=== PATIENT | female | born 1985 | race Caucasian/White ===

== ENCOUNTER 2020-10-18 00:42 | Observation (INO) | payer BC, SELFPAY ==
[2020-10-18 01:00] VITALS: BMI 30.2
--- NOTE | 2020-10-18 01:00 | OBADM ---
This patient, Vicki Miller, admitted to the OB room Labor/Delivery/Recovery 102 for observation. Patient/family oriented to hospital policies and general routines including ID bracelet, bed and alarms, visiting hours, pain management, procedures, bathroom and other care routines, personal items, smoking policy, room service/diet, and visiting hours. Patient/Family are encouraged to report perceived risks to care and to ask questions if they do not understand what they are told or what they should do.
--- NOTE | 2020-11-08 11:08 | PM.OBTRLD ---
OB - Triage/Final Diagnosis Visit Information Comments/Additional reasons for admission: I have assessed the risk for this patient, Vicki Miller, and determined that she would benefit from observation care. Final Diagnosis (1) False labor: Code(s): O47.9 - False labor, unspecified Status: Acute
== END 2020-10-18 03:35 | disposition home or self-care (01) ==
PROVIDERS: Admitting Provider Obstetrics & Gynecology; PCP Internal Medicine; Visit Provider Obstetrics & Gynecology
DX: O47.1 False labor at or after 37 completed weeks of gestation (principal); Z3A.38 38 weeks gestation of pregnancy
CPT/HCPCS: G0378; G0379

== ENCOUNTER 2020-10-26 07:15 | Inpatient (IN) | payer BC, SELFPAY ==
[2020-10-26] VITALS (35 sets, daily range): BP systolic 90–122; BP diastolic 49–82; PULSE 56–99; RESP 15–16; TEMP 36.1–37.4; O2SAT 98–100; BMI 29.7
--- OUTSIDE RECORDS SUMMARY | 2020-10-26 07:20 | XMS_ITS ---
:1985 Author Care Team Providers Name Role Phone CONSTANTINO RUIZ DO Primary Care Provider [phone] Allergies Code Code System Name Reaction Severity Status Onset NKDA ? Medications Name Status Start Date Stop Date ? ? Afluria Qd (36 mos up)(PF)60 Completed ? 03/18/2020 mcg (15 mcg x4)/0.5 mL IM syringe azelaic acid 15 % topical gel Completed ? iron Active ? Not available + DHA Active ? Not available silver sulfadiazine 1 % topical cream Active ? Not available triamcinolone acetonide 0.1 % topical Completed ? 03/18/2020 ointment Problems Name Status Onset Date Source ? Active 04/17/2020 ? Uterine Size for Dates Discrepancy Active 08/21/2020 ? Large for Gestation Age Fetus Active ? ? History of Section Active ? ? Procedures Date Name Performed by ? 12/13/2017 Delivery Information not avai lable 05/15/2003 Breast Biopsy Information not avai labольга Notes: Left breast 05/15/1988 Tonsillectomy Information not avai lable 04/17/2020 US, Obstetric, Nuchal Translucency Cecilio herrera [address] [place] [address] ([address]) 06/08/2020 US, Obstetric, 2Nd or 3Rd Trimester Leydi segura [address]
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
--- OUTSIDE RECORDS SUMMARY | 2020-10-26 07:20 | XMS_ITS | Encounter Summary ---
:1985 Author Care Team Providers Name Role Phone Fuentes Juan DO Primary Care Provider [phone] Reason for Visit None recorded. Assessment and Plan 1. Reduced movement ? non-stress test Discussion Note: None recorded.Patient educational handouts: No information available. Plan of Care Reminders Provider Appointments Ob Routine Rakel Delores 11/05/2020 MD Vlad 9:15AM Lab None ? ? recorded. Referral None ? ? recorded. Procedures None ? ? recorded. Surgeries None ? ? recorded. Imaging Non-stress [place] Test 10/21/2020 Medications Name Start Date ? ? iron [...]
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
--- OUTSIDE RECORDS SUMMARY | 2020-10-26 07:20 | XMS_ITS ---
:1985 Author Care Team Providers Name Role Phone CONSTANTINO RUIZ DO Primary Care Provider [phone] Allergies Code Code System Name Reaction Severity Status Onset NKDA ? Medications Name Status Start Date Stop Date ? ? baclofen 10 mg tablet Completed ? 11/01/2016 TK 1 T PO TID PRN Boostrix Tdap 2.5 Lf unit-8 mcg-5 Lf/0.5 mL intramuscular syring e Active ? Not available ADM 0.5ML IM UTD cephalexin 500 mg capsule Active ? Not av ailable Fluvirin [id number] (PF) 45 mcg(15 mcg x3)/0.5 mL intramuscular s yringe Active ? Not available ADM 0.5ML IM UTD Fluzone Quad (PF) 60 mcg(15 mcgx4)/0.5 mL intramuscular s yringe Active ? Not available ADM 0.5ML IM UTD hydrocortisone butyrate 0.1 % topical Completed ? 11/01/2016 cream hyoscyamine 0.125 mg sublingual tablet Unknown ? Not available Levora-28 0.15 mg-0.03 mg tablet Completed ? 11/01/2016 TK 1 T PO QD Lotemax 0.5 % eye drops,suspension Unknown ? Not available INT 1 GTT INTO AFFECTED EYE QID meloxicam 15 mg tablet Completed ? 7 TK 1 T PO QD metronidazole 500 mg tablet Completed ? 04/14 Norlyda 0.35 mg tablet Active ? Not avail able nortriptyline 25 mg capsule Completed ? 10/14 TK ONE C PO QHS ofloxacin 0.3 % eye drops Unknown ? Not av ailable ondansetron 4 mg disintegrating tablet Unknown ? Not available prednisone 20 mg tablet Active
--- OUTSIDE RECORDS SUMMARY | 2020-10-26 07:20 | XMS_ITS | Encounter Summary ---
:1985 Author Care Team Providers Name Role Phone Fuentes Juan Primary Care Provider [phone] Reason for Visit OB visit Assessment and Plan 1. Large for gestation age fetus Discussion Note: None recorded.Patient educational handouts: No [...] BMI Blood Pressure 5 ft 4 in 163 lbs 28 kg/m2 110/72 mm[Hg] Results Lab Results None recorded. Allergies Code Code System Name Reaction Severity Onset NKDA ? ? ? Problems Name Status Onset Date Source ?
--- OUTSIDE RECORDS SUMMARY | 2020-10-26 07:20 | XMS_ITS | Encounter Summary ---
:1985 Author Care Team Providers Name Role Phone Fuentes Juan Primary Care Provider [phone] Reason for Visit OB visit Assessment and Plan 1. Large for gestation age fetus 2. History of section 3. section following pr evious section ? section (SURG) Discussion Note: None recorded.Patient educational handouts: No information available. Plan of Care Reminders Provider Appointments Ob Routine Rakel Delores 11/05/2020 MD Vlad 9:15AM Lab None ? ? recorded. Referral None ? ? recorded. Procedures None ? ? recorded. Surgeries [facility] (SURG) 10/02/2020 Vlad Imaging None ? ? recorded. Medications Name Start Date ? ? iron ? + DHA ? silver sulfadiazine 1 % topical cream ? APPLY A 1/16 INCH (1.5 MM) THICK LAYER TO ENTIRE BURN AREA BY TOPICALROUTE 2 TIMES PER DAY Medications Administered None recorded. Vitals Height Weight BMI Blood Pressure 5 ft 4 in 158 lbs 27.1 kg/m2 112/68 mm[Hg] Results Lab Results None recorded. Allergies Code Code System Name
--- OUTSIDE RECORDS SUMMARY | 2020-10-26 07:20 | XMS_ITS | Encounter Summary ---
:1985 Author Care Team Providers Name Role Phone Fuentes Juan Primary Care Provider [phone] Reason for Visit OB visit OB [id number] EDC 10/31/2020 LMP 01/24/2021 Assessment and Plan Assessment Note Patient is _37__weeks . Dis cussed plan. 1. Routine care Discussion Note: None recorded.Patient educational handouts: No [...] BMI Blood Pressure 5 ft 4 in 160 lbs 27.5 kg/m2 102/61 mm[Hg] Results Lab Results None recorded. Allergies Code Code System Name Reaction Severity Onset
--- OUTSIDE RECORDS SUMMARY | 2020-10-26 07:20 | XMS_ITS | Encounter Summary ---
:1985 Author Care Team Providers Name Role Phone Fuentes Bruce Ajaygenesis Primary Care Provider [phone] Reason for Visit OB visit OB [id number] EDC 10/31/2020 LMP 01/25/2020 Assessment and Plan Assessment Note Patient is __36_weeks . Dis cussed plan. 1. Routine care [...] DAY Medications Administered None recorded. Vitals Height BMI 5 ft 4 in 28 kg/m2 Results Lab Results None recorded. Allergies Code Code System Name Reaction Severity Onset NKDA ?
--- OUTSIDE RECORDS SUMMARY | 2020-10-26 07:20 | XMS_ITS | Encounter Summary ---
:1985 Author Care Team Providers Name Role Phone Fuentes Juan DO Primary Care Provider [phone] Reason for Visit OB visit 33w5d Assessment and Plan 1. Routine care Discussion Note: None recorded.Patient [...] BMI Blood Pressure 5 ft 4 in 155 lbs 26.6 kg/m2 107/66 mm[Hg] Results Lab Results None recorded. Allergies Code Code System Name Reaction Severity Onset NKDA ? ? ? Problems Name Status Onset Date Source ?
--- OUTSIDE RECORDS SUMMARY | 2020-10-26 07:20 | XMS_ITS | Encounter Summary ---
:1985 Author Care Team Providers Name Role Phone Fuentes Juan DO Primary Care Provider [phone] Reason for Visit OB visit Assessment and Plan 1. History of section 2. Routine care 3. Uterine size for dates discre pancy Discussion Note: None recorded.Patient educational handouts: No [...] BMI Blood Pressure 5 ft 4 in 150 lbs 25.7 kg/m2 102/62 mm[Hg] Results Lab Results None recorded. Allergies Code Code System Name Reaction Severity Onset NKDA ? ? ? Pro
--- OUTSIDE RECORDS SUMMARY | 2020-10-26 07:20 | XMS_ITS | Encounter Summary ---
:1985 Author Care Team Providers Name Role Phone Fuentes Juan DO Primary Care Provider [phone] Reason for Visit OB visit 31w5d Assessment and Plan 1. Routine care Discussion [...] BMI Blood Pressure 5 ft 4 in 154 lbs 26.4 kg/m2 108/57 mm[Hg] Results Lab Results None recorded. Allergies Code Code System Name Reaction Severity Onset NKDA ? ? ? Problems Name Status Onset Date Source ?
--- OUTSIDE RECORDS SUMMARY | 2020-10-26 07:20 | XMS_ITS | Encounter Summary ---
:1985 Author Care Team Providers Name Role Phone Fuentes Juan DO Primary Care Provider [phone] Reason for Visit OB visit 27w4d Assessment and Plan 1. Routine care Discussion [...] BMI Blood Pressure 5 ft 4 in 148 lbs 25.4 kg/m2 111/69 mm[Hg] Results Lab Results None recorded. Allergies Code Code System Name Reaction Severity Onset NKDA ? ? ? Problems Name Status Onset Date Source ?
--- NOTE | 2020-10-26 07:44 | LDADM ---
This patient, Vicki Miller, was admitted to Labor/Delivery/Recovery 120 on 10/26/20 at 07:15. Plans for labor, pain management and were discussed with patient. Patient/family oriented to hospital policies and general routines including ID bracelet, bed and alarms, visiting hours, pain management, procedures, bathroom and other care routines, personal items, smoking policy, room service/diet and guest tray routines, security routines, and visiting hours. Patient/Family are encouraged to report perceived risks to care and to ask questions if they do not understand what they are told or what they should do. See OBIX for further documentation.
--- NOTE | 2020-10-26 07:48 | P.PNAN_ITS ---
Anes - Initial Pre Proc Eval Procedure: Operation Date: 10/26/20 12:00 Proposed Procedures p Repeat Section - Rakel Chu MD Date/Time: 10/26/20 07:48 Surgeon: Rakel Chu MD Pre Op Diagnosis: C Section Patient Data Age: 35 Gender: F Height: 1.57 m Weight: 73.64 kg Last Vital Signs Pulse 90 10/26/20 07:30 BP 102/68 10/26/20 07:30 Allergies Allergy/AdvReac Type Severity Reaction Status Date / Time No Known Allergies Allergy Verified 08/19/20 10:00 Home Medications Medication Instructions Recorded Confirmed Type PNV cmb#95-ferrous fumarate-FA 1 tablet PO DAILY 10/01/20 10/01/20 History [] Patient hx anesthesia problems: none Family hx anesthesia problems: none [facility] Social History Social History Smoking status: Former smoker Second hand tobacco smoke exposure: No Smoking end date: 05/15/13 Alcohol intake: current Substance use: never Gender identity (if verbalized by the patient): Female Spiritual care concerns: No Anes - Eval Final PreProcedure Day of Procedure 10/26/20 07:48 Patient weight: overweight Heart: regular rate and rhythm Lungs: clear to auscultation and normal air movement Airway: Mallampati scale class II Neurological: alert and oriented Last oral intake: >/= 8 hours ASA classification: II Emergent: no Anesthetic plan: proceed Anesthesia type and monitoring: regional spinal and standard monitoring Informed Consent: The patient's anesthetic plan and its attendant risks and benefits were discussed with the patient/family/POA. Questions were solicited and answers provided to the satisfaction of the patient/family/POA.
[2020-10-26] MEDS: LACTATED RINGERS 1,000 ML 125 ML IV CONT (07:55)
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
[2020-10-26 08:09] LABS: Basophils Percent Auto 0.2 % (0.2-1.2); Eosinophils Absolute Auto 0.1 K/mm3 (0-0.3); Eosinophils Percent Auto 0.8 % (0-4.4); Hematocrit 40.5 % (37.0-47.0); Hemoglobin 12.3 g/dL (12.0-15.0); Immature Granulocyte Absolute 0.08 K/mm3 (0.00-0.031); Immature Granulocyte Percent A 0.7 % (0-0.5); Lymphocytes Absolute Auto 2.06 K/mm3 (0.9-3.2); Lymphocytes Percent Auto 17.9 % (18.3-44.2); Mean Corpuscular HGB Conc 30.4 g/dl (32-36); Mean Corpuscular Hemoglobin 24.6 pg (26-34); Mean Corpuscular Volume 81.2 fl (80-100); Mean Platelet Volume 11.2 fl (7.4-10.4); Monocytes Absolute Auto 0.8 K/mm3 (0.1-0.6); Monocytes Percent Auto 6.9 % (2.6-8.5); Neutrophils Absolute Auto 8.4 K/mm3 (1.3-6.7); Neutrophils Percent Auto 73.5 % (45.5-73.1); Platelet Count Result 187 k/mm3 (150-375); Red Blood Count 4.99 M/mm3 (4.2-5.4); Red Cell Distribution Width 18.2 % (11.5-14.5); White Blood Count 11.5 K/mm3 (4.5-10.0)
--- NOTE | 2020-10-26 08:15 | WPDHPUPDATE1 ---
History and Physical Update Update Date/Time: 10/26/20 08:15 History and Physical has been reviewed, including an updated exam of the patient. There are NO changes in the patient's condition. Risks, benefits, and alternatives have been discussed and questions answered. Patient agrees to proceed with procedure.
[2020-10-26] MEDS: KETOROLAC 30 MG/ML VIAL (*BKC) IV PUSH ×2 (09:10→20:16)
[2020-10-26 09:17] LABS: Rapid Plasma Reagin Non-Reactive (NonReactive)
--- NOTE | 2020-10-26 09:23 | W.PM.PROC2 ---
Procedure Note - Detailed Date of Procedure 10/26/20 Pre-op Diagnosis term IUP, prior section Post-op Diagnosis same Procedure Performed repeat section Surgeon Rakel Chu MD Lead Network Engineer see delivery record Anesthesia spinal Indications prior CS Description of Procedure The patient was taken to the operating room and placed in supine position with left lateral tilt. She received spinal anesthesia and was prepped and draped in normal fashion. Martinez was in place. After testing for adequate regional anesthesia, a Pfannensteil incision was made through skin and subcutaneous tissue. The fascia was incised in the midline and this was extended laterally with perkins scissors. the rectus muscles were from the fascia both superiorly and inferiorly. The peritoneum was entered bluntly and this opening was extended bluntly and with metzenbaum scissors. A bladder blade was placed. A bladder flap was made and the bladder blade replaced. The low transverse uterine incision was made with a scalpel and extended bluntly. The amniotic sac was ruptured and clear fluid was noted. The head was elevated to the incision. The head delivered easily. The remainder of the was delivered easily. After delayed cord clamping, the cord was cut and the baby handed to the nurse. The uterus was exteriorized and the placenta was extracted manually. The uterus was wiped clean to ensure no remaining membranes. The uterus was closed with one running, nonlocking suture of 3-0 vicryl. Hemostasis was noted. the uterus was returned to the pelvis and the abdomen was irrigated. The fascia was closed with running suture of 0-vicryl. The subcutaneous tissue was irrigated and made hemostatic with bovie cautery. The skin was closed with 4-0 vicryl in running subcuticular fashion and steri strips were placed. The patient tolerated the procedure well and mother and baby were both in stable condition. Drains No Packing No Pathology yes Complications No immediate complications Condition stable Disposition floor
--- NOTE | 2020-10-26 09:47 | PC.NURSE ---
0735-Pt came in stating she is a scheduled c/s today at noon but started sherwin aound 0500. SVE is 6-7cm. called,informed of SVE. She stated she is entering the building now and can go back for c/s as soon anesthesia is ready. Laura BHAT called, she stated she is ready and go as soon as labs are back on pt.
[2020-10-26] MEDS: ONDANSETRON INJ 4 MG/2 ML VIAL IV PUSH (10:55)
[2020-10-26] MEDS: OXYTOCIN 30 UNITS/NS 500 ML 30 UNITS/500 ML BAG 125 UNITS IV CONT (11:36)
--- NOTE | 2020-10-26 12:32 | OBPPTRN ---
1139 Patient transferred to post room #286 via stretcher. Support person present. Oriented to unit, room, information board, rooming in, admission packet and security measures. Patient verbalizes understanding.
[2020-10-26] MEDS: diphenhydrAMINE HCl INJ 50 MG/ML VIAL 25 MG IV PUSH (12:38)
--- NOTE | 2020-10-26 12:50 | PC.NURSE ---
Mother called out for assist with feeding. Mother states eagerly fed for first feeding, mother has slight tenderness with this attempt. Reviewed feeding cues, frequencies, duration of feedings, feeding elimination flow sheet, and signs of adequate intake. Demonstrated stimulation techniques to wake infant for feeding. Assisted with infant to breast. Mother is attempting in cradle positioning, infant is drawing in nipple only. Reviewed positioning/alignment in cross cradle, holding breast in ?U? hold and guided asymmetrical latch on. able to latch correctly. nursed eagerly, with steady draws and frequent swallowing noted. Reviewed signs of a correct latch, effective nursing and suck swallow ratio. Infant would slip to shallow latch, mother reports tenderness. Demonstrated how to adjust latch more deeply while feeding. Mother reports she can feel change in latch and has no tenderness. Suggested mother stimulate while feeding to increase stimulate, increase intake and to assist with maintaining deep latch. Nipple care reviewed of lanolin after feedings, warm compresses as needed. Suggested mother hold breast during entire feeding to help maintain deep latch. Instructed mother to call out for RN assistance if she is unable to latch infant for feeding or she has discomfort with nursing. Instructed feeding should be initiated three hours from start of last feeding or if feeding cues are noted before. Mother voiced understanding of information shared.
[2020-10-26] MEDS: DEXTROSE 5%/0.45% SOD CHL 1,000 ML 125 ML IV CONT (17:15)
[2020-10-27 06:06] LABS: Basophils Percent Auto 0.2 % (0.2-1.2); Eosinophils Percent Auto 0.3 % (0-4.4); Hematocrit 32.8 % (37.0-47.0); Hemoglobin 9.8 g/dL (12.0-15.0); Immature Granulocyte Absolute 0.08 K/mm3 (0.00-0.031); Immature Granulocyte Percent A 0.6 % (0-0.5); Lymphocytes Absolute Auto 1.34 K/mm3 (0.9-3.2); Lymphocytes Percent Auto 10.5 % (18.3-44.2); Mean Corpuscular HGB Conc 29.9 g/dl (32-36); Mean Corpuscular Hemoglobin 24.7 pg (26-34); Mean Corpuscular Volume 82.8 fl (80-100); Monocytes Absolute Auto 0.8 K/mm3 (0.1-0.6); Monocytes Percent Auto 6.1 % (2.6-8.5); Neutrophils Absolute Auto 10.5 K/mm3 (1.3-6.7); Neutrophils Percent Auto 82.3 % (45.5-73.1); Platelet Count Result 146 k/mm3 (150-375); Red Blood Count 3.96 M/mm3 (4.2-5.4); Red Cell Distribution Width 17.8 % (11.5-14.5); White Blood Count 12.8 K/mm3 (4.5-10.0)
[2020-10-27] MEDS: MULTIVIT/MIN/PREN/FOL AC/IRON TABLET 1 TAB PO (06:44)
[2020-10-27] MEDS: DOCUSATE SODIUM 100 MG CAPSULE PO ×2 (06:44→17:48)
[2020-10-27] MEDS: IBUPROFEN 600 MG TABLET PO ×3 (06:45→20:49)
[2020-10-27] MEDS: SIMETHICONE 80 MG TAB.CHEW PO ×3 (06:45→17:48)
[2020-10-27] MEDS: POLYSACCHARIDE IRON COMPLEX 150 MG CAPSULE PO ×2 (06:57→17:48)
--- NOTE | 2020-10-27 07:25 | WPDANLDPN2 ---
Anes-Prog Note L&D Date/Time: 10/27/20 07:26 Comfortable throughout: section Neuraxial method: spinal Epidural/Spinal procedure site: clean & non-tender Neuro status: Neuro function grossly intact. Cardiovascular status: normal Respiratory status: normal Airway patency: baseline Mental status: baseline Post-Op hydration status: normal Vital Signs: Last Vital Signs Temp 36.9 C 10/26/20 22:15 Pulse 72 10/26/20 22:15 Resp 16 10/26/20 22:15 BP 90/51 L 10/26/20 22:15 Pulse Ox 100 10/26/20 22:15 Pain score (VAS): 05/24 I/O: Intake & Output 10/26/20 10/26/20 10/27/20 15:59 23:59 07:59 Intake Total 1100 2520 Output Total 375 3505 1325 Balance 725 695 -1329 Post-procedural complaints: nausea moderate, treatment effective and vomiting Patient feedback: Patient satisfied with anesthetic care.
--- NOTE | 2020-10-27 07:26 | WPDANLDNPN2 ---
Anes-Prog Note L&D-Neuraxial Date/Time: 10/27/20 07:26 Neuraxial medications: intrathecal PF morphine Opiod-related complaints: none Patient feedback: Patient satisfied with post-operative pain management.
[2020-10-27 07:35] VITALS: BP 104/68; PULSE 61; RESP 16; TEMP 37.2; O2SAT 97
--- NOTE | 2020-10-27 07:53 | P.PNOB_ITS ---
OB - PN: Subj Subjective Date/time seen: 10/27/20 07:53 Patient comments: no complaints baby status: NICU Agenda feeding status: pumping and storing Narrative: POD 1 from primary CS. Doing well. Normal lochia. Eating, ambulating, singh out. Has not voided yet. OB - PN: Obj Data Labs CBC & Chem 7: 10/27/20 05:54 Labs: Laboratory Results - last 24 hr 10/26/20 10/26/20 10/26/20 07:49 07:49 07:49 WBC 11.5 H RBC 4.99 Hgb 12.3 Hct 40.5 MCV 81.2 MCH 24.6 L MCHC 30.4 L RDW 18.2 H Plt Count 187 MPV 11.2 H Immature Gran % (Auto) 0.7 H Neut % (Auto) 73.5 H Lymph % (Auto) 17.9 L [place] % (Auto) 6.9 Eos % (Auto) 0.8 Baso % (Auto) 0.2 Lymph # (Auto) 2.06 [place] # (Auto) 0.8 H Eos # (Auto) 0.1 Baso # (Auto) 0.0 Abs Immat Gran (auto) 0.08 H Absolute Neuts (auto) 8.4 H Absolute Nucleated RBC 0.0 Nucleated RBC % 0.0 RPR Non-reactive Blood Type A Positive Antibody Screen Negative 10/27/20 05:54 WBC 12.8 H RBC 3.96 L Hgb 9.8 L Hct 32.8 L MCV 82.8 MCH 24.7 L MCHC 29.9 L RDW 17.8 H Plt Count 146 L MPV 11.0 H Immature Gran % (Auto) 0.6 H Neut % (Auto) 82.3 H Lymph % (Auto) 10.5 L [place] % (Auto) 6.1 Eos % (Auto) 0.3 Baso % (Auto) 0.2 Lymph # (Auto) 1.34 [place] # (Auto) 0.8 H Eos # (Auto) 0.0 Baso # (Auto) 0.0 Abs Immat Gran (auto) 0.08 H Absolute Neuts (auto) 10.5 H Absolute Nucleated RBC 0.0 Nucleated RBC % 0.0 RPR Blood Type Antibody Screen OB - PN A/P Plan day: 1 Plan: routine care Comments: Desires circumcision- consented and procedure done routine post op care Probably wants DC home tomorrow. Time Spent With Patient Time: Total time spent is greater than 50% in coordination of care (as documented) at patient's floor/unit and/or counseling patient: Exam Narrative: Exam Narrative: UOP 1325/8hrs NAD abdomen soft, appropriately tender, incision bandaged Extremities nontender with 1+ edema
--- NOTE | 2020-10-27 09:25 | PC.NURSE ---
Consult with pt., mother reports has been sleepy since circumcision. Assured mother this is normal. Demonstrated stimulation techniques to wake infant for feeding. Reviewed positioning/alignment, holding breast and asymmetrical latch on. Infant was able to latch correctly. nursed with bursts of eager steady draws and occasional swallowing noted. Suggested to stimulate to keep nursing effectively for increased intake and assist with maintaining deep latch. Reviewed signs of a correct latch, effective nursing and suck swallow ratio. was able to maintain latch without discomfort to mother. Nipple care reviewed. Instructed mother to call out for RN assistance if she is unable to latch for feeding or she has discomfort with nursing. Instructed feeding should be initiated three hours from start of last feeding or if feeding cues are noted before. Mother voiced understanding of information shared.
[2020-10-27] MEDS: ACETAMINOPHEN 325 MG TABLET 650 MG PO ×2 (11:35→17:48)
--- NOTE | 2020-10-27 18:12 | PC.NURSE ---
1386 Patient viewed the discharge video Mother & Baby Care, The First Two Weeks . Patient was given the opportunity and encouraged to ask questions. Patient verbalized understanding of information shared and has been given the mother/baby guide for home reference.
[2020-10-27 20:00] VITALS: BP 114/72; PULSE 73; RESP 18; TEMP 37; O2SAT 99
[2020-10-28] MEDS: ACETAMINOPHEN 325 MG TABLET 650 MG PO ×2 (05:32→09:27)
--- NOTE | 2020-10-28 07:38 | PM.OBPNVD ---
OB - PN: Subj Subjective Date/time seen: 10/28/20 07:38 Patient comments: no complaints and pain well controlled baby status: doing well and nursing well [place] feeding status: exclusively breast feeding Narrative: POD 2 from repeat CS. Doing well. Normal lochia. Eating, ambulating, singh out. Would like DC today. OB - PN: Obj Data Labs CBC & Chem 7: 10/27/20 05:54 OB - PN A/P Plan day: 2 Plan: routine care and discharge home Comments: DC instructions given FU 1 week Time Spent With Patient Time: Total time spent is greater than 50% in coordination of care (as documented) at patient's floor/unit and/or counseling patient: Exam Narrative: Exam Narrative: NAD abdomen soft, appropriately tender, incision CDI Extremities nontender with 1+ edema
--- NOTE | 2020-10-28 07:46 | PM.DS ---
DS: Admitting Diagnosis Admitting Diagnosis Admitting Diagnosis: term iup, labor, LGA, prior CS DS: Discharge Diagnosis Discharge Diagnosis (1) delivery delivered: Code(s): O82 - Encounter for delivery without indication Status: Acute DS: Summary Hospital Course Reason for hospitalization: repeat CS Hospital Course: Pt delivered via repeat CS and the procedure and course were both uncomplicated. She is discharged home in stable condition on POD2. Status at Discharge Functional status at discharge: independent ambulation Time Spent with Patient Time attestation: Total time spent providing and/or coordinating discharge services: Exam Narrative: Exam Narrative: NAD abdomen soft, appropriately tender, incision CDI Discharge Plan Discharge Attending physician on discharge: Rakel Chu Discharging Clinician: Rakel Chu Anticipated Discharge Date/Time: 10/28/20 11:00 Patient Disposition: Home, Self-Care Activity: may shower, may drive after 2 weeks and pelvic rest Diet: as tolerated Discharge Instructions: Education: Mom and Baby Guide Given to: Mother Follow-Up: Call your delivering provider's office for an appointment to be seen in: 1 Week Mom and baby should come to the [facility] for the follow-up appointment. Appointment Date/Time: October 29, 2020 at 8:00 am What to expect at your follow-up visit: Blood Pressure Check Call [phone] if you are unable to keep your appointment time. BREAST CARE: * Wear a snug supportive bra. * For engorgement discomfort: Breast Feeding: * Apply warm moist washcloths * Express milk as needed to relieve engorgement * Wear loose clothing Bottle Feeding: * May apply ice packs * For sore nipples: * Identify correct latch-on * Apply warm moist washcloths before and after nursing * Air dry nipples after nursing * May apply Lansinoh cream to nipples ABDOMINAL INCISION: (if applicable) * Allow incision to air dry * Do NOT use lotions for powders on your incision * When showering, allow soap and water to run over the incision, but do not wash incision PERINEAL CARE: * Until bleeding stops, use your alice bottle after urinating * Change your pad frequently throughout the day * No tub baths until seen by your physician - You may shower ACTIVITY: * Rest as much as possible. * Do not exercise or lift anything heavier than your baby (such as laundry or other children.) * Avoid stairs or driving as much as possible. * Do not put anything into the vagina. No douching, tampons, or sexual activity until seen by physician. NOTIFY PHYSICIAN IF YOU HAVE ANY QUESTIONS OR IF ANY OF THE FOLLOWING SYMPTOMS OCCUR: * If your incision becomes red, swollen, or more painful than what you have experienced in the hospital. * If your vaginal bleeding becomes foul smelling. * If your vaginal bleeding becomes more heavy than a period or if your bleeding changes from pink to bright red. However, you may pass an occasional walnut-sized clot once or twice for the first week . * If you experience a sharp, shooting pain in you calves. * If you discover a hard, reddened area on your breast or if you experience flu-like symptoms. * If you have a fever of 100.4 or greater DIET: * Eat regular, well-balanced meals. * Drink plenty of fluids daily. If , drink to thirst. Patient Instructions: Antibiotic Form Stand Alone Forms: General Discharge Information Follow-up/Referrals: Rakel Chu MD [Physician] - 1 Week Discharge Medications: New hydrocodone-acetaminophen 5-325 mg tablet 1 tablet PO Q4-5H PRN (Reason: Moderate Pain (4-6)) 14 Days Qty: 30 RF: 0 ibuprofen 600 mg Tablet 600 mg PO Q6H PRN (Reason: Cramping) 30 Days Qty: 60 RF: 1 Continued PNV [id number] [
[2020-10-28 08:00] VITALS: BP 118/71; PULSE 84; RESP 16; TEMP 37.3; O2SAT 96
--- NOTE | 2020-10-28 08:15 | PC.NURSE ---
Mother able to independently latch with appropriate positioning/alignment. She denies any nipple discomfort, is feeding as required and waking infant to feed if needed. Mother is concerned infant is sleepy and needs to be awaken for each feeding. Assured mother this is normal and should be more awake and eager to feed within the next few days. Infant has had at least 8 effective feedings in the past 24 hours, and is currently meeting outcomes for weight, output, jaundice and feeding frequencies. Mother states she feels confident to continue effective at home. Reviewed transition to breast milk, signs of adequate intake, and engorgement/relief. Instructed to call ICP if intake/output less than required. Reviewed regular medications mother is taking. Information provided per Martha. Reviewed community resources on the [facility] website and in the Mom/Baby guide. Information on outpatient services provided. Mother has no further questions at this time.
--- NOTE | 2020-10-28 09:00 | PC.NURSE ---
PT introductions made and plan of care discussed per post op c section, pain management, breast feeding, daily care activities and pending discharge to home. PT received instructions and education this shift per one to one discussion, demonstration, and mom baby care guide book. pt and spouse both recipients of such instructions. No barriers to learning identified. PT verbalized understanding of such care.
[2020-10-28] MEDS: POLYSACCHARIDE IRON COMPLEX 150 MG CAPSULE PO (09:27)
[2020-10-28] MEDS: SIMETHICONE 80 MG TAB.CHEW PO (09:27)
[2020-10-28] MEDS: MULTIVIT/MIN/PREN/FOL AC/IRON TABLET 1 TAB PO (09:27)
[2020-10-28] MEDS: IBUPROFEN 600 MG TABLET PO (09:28)
[2020-10-28] MEDS: DOCUSATE SODIUM 100 MG CAPSULE PO (09:29)
[2020-10-28 09:45] VITALS: PULSE 84; RESP 16; O2SAT 96
--- NOTE | 2020-10-28 11:30 | PC.NURSE ---
PT received discharge instructions per protocol
--- NOTE | 2020-10-28 12:15 | PC.NURSE ---
Pt discharged to home ambulatory accompanied by spouse and to waiting car. Follow up appts confirmed
[2020-10-29 08:40] VITALS: BP 114/77; PULSE 96; RESP 20; TEMP 36.8; O2SAT 100
== END 2020-10-28 12:15 | disposition home or self-care (01) | DRG 788 ==
LOC: ANHLDR 07:18 → ANHOB2 11:53
PROVIDERS: Admitting Provider Obstetrics & Gynecology; PCP Internal Medicine; Visit Provider Obstetrics & Gynecology
PROC: 10D00Z1 Extraction of Products of Conception, Low, Open Approach (ICD-10-PCS; CPT 59514; principal; 2020-10-26 12:00)
DX: O34.211 Maternal care for low transverse scar from previous cesarean delivery (principal); Z87.891 Personal history of nicotine dependence; O36.63X0 Maternal care for excessive fetal growth, third trimester, not applicable or unspecified; Z3A.39 39 weeks gestation of pregnancy; Z37.0 Single live birth; T21.02XD Burn of unspecified degree of abdominal wall, subsequent encounter
CPT/HCPCS: 36415; 85025; 86592; 86850; 86900; 86901; A9270; J0131; J1200; J1885; J2274; J2370; J2405; J2590; J7120

== ENCOUNTER 2021-01-25 16:20 | Outpatient (CLI) | payer BC, SELFPAY ==
--- NOTE | ~2021-01-25 | XR_ITS ---
XR hand RT min 3V DATE: 01/25/2021 16:40 INDICATION: Pain and swelling at fifth digit DIP joint for several weeks TECHNIQUE: 3 views COMPARISON: None FINDINGS: No fracture or dislocation, periosteal reaction or bone destruction. Joint spaces are pres erved. No erosive change. IMPRESSION: Negative Reviewed, dictated and finalized at location A. IMPRESSION: Negative
== END 2021-01-25 16:21 | disposition home or self-care (01) ==
PROVIDERS: PCP Internal Medicine; Visit Provider Internal Medicine
DX: M79.644 Pain in right finger(s) (principal)
CPT/HCPCS: 73130